=== PATIENT | born 1985 | race Caucasian/White ===

== ENCOUNTER → 2025-03-28 10:28 | Outpatient (BNVA) | payer OTHER, SELFPAY | PROVIDERS: PCP Physician Assistant; Referring Provider Physician Assistant; Visit Provider Internal Medicine Rheumatology | DX: M45.7 Ankylosing spondylitis of lumbosacral region (principal); G95.0 Syringomyelia and syringobulbia; Z71.85 Encounter for immunization safety counseling; M47.816 Spondylosis without myelopathy or radiculopathy, lumbar region; M45.9 Ankylosing spondylitis of unspecified sites in spine; Z79.899 Other long term (current) drug therapy; M81.0 Age-related osteoporosis without current pathological fracture | CPT/HCPCS: 36415; 72100; 72202; 80076; 82306; 82565; 85025; 85651; 86140; 86480; 86704; 86803; 86812; 87340; 99205 ==

== ENCOUNTER → 2025-08-03 10:47 | Outpatient (BNVA) | payer OTHER, SELFPAY | PROVIDERS: PCP Physician Assistant; Visit Provider Internal Medicine Rheumatology | DX: M45.7 Ankylosing spondylitis of lumbosacral region (principal); G95.0 Syringomyelia and syringobulbia; Z79.899 Other long term (current) drug therapy; Z71.85 Encounter for immunization safety counseling; M47.816 Spondylosis without myelopathy or radiculopathy, lumbar region | CPT/HCPCS: 36415; 80076; 82306; 82565; 85025; 85651; 86140; 99214 ==